=== PATIENT | male | born 1965 | race Two or more races ===

== ENCOUNTER 2017-03-31 14:53 | Emergency (ER) | payer SELFPAY ==
[~2017-03-31] VITALS: Ht 165.1 cm; Wt 77.3 kg
[2017-03-31 15:05] VITALS: BP 139/75
[2017-03-31] MEDS ORDERED: predniSONE 20 MG TABLET PO ONE (15:30)
[2017-03-31] MEDS ORDERED: FAMOTIDINE 20 MG TABLET. PO ONE (15:30)
[2017-03-31] MEDS ORDERED: FAMO-63 PO (15:47)
[2017-03-31] MEDS ORDERED: PRED50TA PO (15:47)
[2017-03-31] MEDS ORDERED: DIPH25CA58 PO (15:47)
--- NOTE | 2017-03-31 15:47 | PHYS DOC ---
Past Medical History Past Medical History: No Pertinent History Past Surgical History: Tonsillectomy, Other Additional Past Surgical Histo: fracture repair Alcohol Use: None Drug Use: None Adult General Chief Complaint Chief Complaint: INSECT BITE HPI HPI Patient is a 50 year old 52-year-old male patient with no significant medical history who presents today with a spider bite. Patient states he was working out side and a spider fell on his right facial area and crawled to his right elbow where he believes he got bit. Patient denies any difficulty breathing. Denies any throat or tongue swelling. He states he was very anxious when this happened. Patient states his come down right now. PCP Dr. Patton Review of Systems Review of Systems Constitutional: Denies fever or chills [] Eyes: Denies change in visual acuity, redness, or eye pain [] HENT: Denies nasal congestion or sore throat [] Respiratory: Denies cough or shortness of breath [] Cardiovascular: No additional information not addressed in HPI [] GI: Denies abdominal pain, nausea, vomiting, bloody stools or diarrhea [] : Denies dysuria or hematuria [] Musculoskeletal: Denies back pain or joint pain [] Integument: Spider bite to the right elbow Neurologic: Denies headache, focal weakness or sensory changes [] Endocrine: Denies polyuria or polydipsia [] anxiety: anxiety from spider bite Current Medications Current Medications Current Medications Medications (Trade) Dose Ordered Sig/Kenna Start Time Stop Time Status Last Admin Dose Admin Famotidine (Pepcid) 20 mg 1X ONCE 03/31/17 15:30 03/31/17 15:31 DC Prednisone (Prednisone) 60 mg 1X ONCE 03/31/17 15:30 03/31/17 15:31 DC Allergies Allergies Allergies Coded Allergies Type Severity Reaction Last Updated Verified erythromycin base Allergy Unknown 03/31/17 Yes Physical Exam Physical Exam Constitutional: Well developed, well nourished, no acute distress, non-toxic appearance. [] HENT: Normocephalic, atraumatic, bilateral external ears normal, oropharynx moist, no oral exudates, nose normal. [] Eyes: PERRLA, EOMI, conjunctiva normal, no discharge. [] Neck: Normal range of motion, no tenderness, supple, no stridor. [] Cardiovascular:Heart rate regular rhythm, no murmur [] Lungs & Thorax: Bilateral breath sounds clear to auscultation [] Abdomen: Bowel sounds normal, soft, no tenderness, no masses, no pulsatile masses. [] Skin: Tiny puncture wound noted on the right lateral elbow with no redness. Back: No tenderness, no CVA tenderness. [] Extremities: No tenderness, no cyanosis, no clubbing, ROM intact, no edema. [] Neurologic: Alert and oriented X 3, normal motor function, normal sensory function, no focal deficits noted. [] Psychologic: Affect normal, judgement normal, mood normal. [] Current Patient Data Vital Signs Vital Signs Date Time Temp Pulse Resp B/P (MAP) Pulse Ox O2 Delivery O2 Flow Rate FiO2 03/31/17 15:05 98.0 85 16 95 Room Air 98.0 EKG EKG [] Radiology/Procedures Radiology/Procedures [] Course & Med Decision Making Course & Med Decision Making Pertinent Labs and Imaging studies reviewed. (See chart for details) Patient has a spider bite to the right buddhist. He is very anxious about this because he states he is afraid of spiders. He was given prednisone and Pepcid in the ED. He is driving himself. Discharged with prednisone for 4 more days, Benadryl and Pepcid. Provided return precautions and discharged in stable condition. Dragon Disclaimer Dragon Disclaimer This electronic medical record was generated, in whole or in part, using a voice recognition dictation system. Departure Departure Impression: Primary Impression: Spider bite Additional Impression: Anxiety Disposition: 01 HOME, SELF-CARE Condition: STABLE Referrals: KENIA PATTON (PCP) Patient Instructions: Spider Bite, [id number] Additional Instructions: Please take the prescribed prednisone as ordered. Take Benadryl every 4 hours. Follow-up with your doctor in the course of this week. Come back to the ED symptoms worsen. Scripts Diphenhydramine Hcl (BENADRYL) 25 Mg Capsule 1 CAP PO Q4HRS W/A Y for RASH, #30 CAP 1 Refill Prov: MUTUNGA,JULIETH SAND POLISHER 03/31/17 Famotidine (PEPCID) 20 Mg Tablet 20 MG PO DAILY, #6 TAB Prov: MUTUNGA,JULIETH [employer]ER 03/31/17 Prednisone (PREDNISONE) 50 Mg Tablet 1 TAB PO DAILY, #4 TAB Prov: MUTUNGA,JULIETH [employer]ER 03/31/17 Problem Qualifiers Primary Impression: Spider bite Encounter type: initial encounter Injury intent: accidental or unintentional Qualified Codes: T63.301A - Toxic effect of unspecified spider venom, accidental (unintentional), initial encounter JULIETH ANTHONY [employer]AND POLISHER March 31, 2017 15:47
== END 2017-03-31 15:55 | disposition home or self-care (01) ==
LOC: ER 14:53
DX: T63.301A Toxic effect of unspecified spider venom, accidental (unintentional), initial encounter (principal); F41.9 Anxiety disorder, unspecified; Z88.1 Allergy status to other antibiotic agents; W57.XXXA Bitten or stung by nonvenomous insect and other nonvenomous arthropods, initial encounter; Y93.89 Activity, other specified; Y92.89 Other specified places as the place of occurrence of the external cause; Y99.8 Other external cause status
CPT/HCPCS: 99283; J7512

== ENCOUNTER → 2019-07-03 | Outpatient (CLI) | payer OTHER ==
[~2019-07-03] MED LIST: DIPH25CA58 PO; FAMO-63 PO; PRED50TA PO
--- NOTE | 2019-07-03 11:43 | RAD ---
STUDY: MRI of the left shoulder without contrast INDICATION: Left shoulder pain after a fall one year prior. COMPARISON: None. TECHNIQUE: Multiplanar MR imaging of the left shoulder performed without the use of intravenous or intra-articular contrast. FINDINGS: AC joint: No significant AC joint arthrosis. Small volume fluid within the subacromial subdeltoid bursa. Rotator cuff: Full-thickness tear of the supraspinatus anterior fibers extending from the leading edge with the tear defect measuring 1.2 cm AP, image 7 series 8. Retraction of torn tendon fibers medially by approximately 1.4 cm, image 13 series 6. Background supraspinatus tendinosis. Tendinosis of the more anterior infraspinatus as well without high-grade tear. The teres minor is intact. Mild subscapularis tendinosis without tear. No significant rotator cuff musculature atrophy. Labrum: Some signal heterogeneity at the superior labrum without discrete tear. Long head biceps tendon: Mild intra-articular long head biceps tendinosis approaching the groove entrance. Cartilage: No focal chondral defect. Bones: No acute fracture or aggressive marrow signal. Miscellaneous: Subcoracoid bursa fluid distention likely related to communication with the subacromial subdeltoid bursa. Impression: 1. Full-thickness tear of the anterior to mid supraspinatus extending from the leading-edge with the tear defect measuring 1.2 cm AP on a background of tendinosis. Retracted torn tendon fibers approximately 1.4 cm medial to the footprint. Tendinosis of the anterior infraspinatus as well without discrete tear. Mild subscapularis tendinosis without tear. Normal rotator cuff muscular bulk. 2. Mild intra-articular long head biceps tendinosis approaching the groove entrance. 3. Some signal heterogeneity at the superior labrum without discrete tear. 4. Small volume fluid distention of the subacromial subdeltoid bursa with extension of fluid to distend the subcoracoid bursa. Electronically signed by: HANNAH FONSECA MD (07/03/2019 11:40 AM) [id number]
== END | disposition home or self-care (01) ==
LOC: MRI 09:43
PROVIDERS: ATTEND Family Medicine
DX: S46.012A Strain of muscle(s) and tendon(s) of the rotator cuff of left shoulder, initial encounter (principal); W19.XXXA Unspecified fall, initial encounter; Y93.89 Activity, other specified; Y92.89 Other specified places as the place of occurrence of the external cause; Y99.8 Other external cause status; F40.240 Claustrophobia
CPT/HCPCS: 73221